=== PATIENT | male | born 1995 | race Caucasian/White ===

== ENCOUNTER 2017-10-19 11:41 | Emergency (ER) | payer SELFPAY, OTHER ==
[2017-10-19] MEDS: TETANUS/DIPHTHERIA TOX ADSORB ADULT 0.5ML SYR/VIAL (90714) IM (14:29)
[2017-10-19] MEDS: RABIES IMMUNE GLOBULIN 1500 INTERNATIONAL UNITS/10 ML VIAL (90375) IM (14:44)
[2017-10-19] MEDS: AUGMENTIN 875 MG TAB PO (14:57)
[2017-10-19] MEDS: RABIES VACCINE HUMAN 2.5 INTERNATIONAL UNITS/ML VIAL (90675) IM (14:58)
== END 2017-10-19 15:28 | disposition home or self-care (01) ==
LOC: M ED 11:41
DX: S81.051A Open bite, right knee, initial encounter (principal); S81.052A Open bite, left knee, initial encounter; S71.151A Open bite, right thigh, initial encounter; S61.551A Open bite of right wrist, initial encounter; W54.0XXA Bitten by dog, initial encounter; Y92.410 Unspecified street and highway as the place of occurrence of the external cause
CPT/HCPCS: 90714

== ENCOUNTER 2018-03-27 21:39 | Emergency (ER) | payer MEDICAID, OTHER, SELFPAY ==
[2018-03-27 22:26] LABS: HEMATOCRIT 44.7 % (42.0-52.0); HEMOGLOBIN 15.4 g/dl (13.5-17.5); MEAN CORPUSCULAR HEMOGLOBIN 31.2 pg (27.0-33.0); MEAN CORPUSCULAR HGB CONC 34.5 g/dl (32.0-36.5); MEAN CORPUSCULAR VOLUME 90.7 fl (80.0-96.0); PLATELET COUNT, AUTOMATED 182 10^3/uL (150-450); RED BLOOD COUNT 4.93 10^6/uL (4.30-6.10); RED CELL DISTRIBUTION WIDTH 11.8 % (11.5-14.5); WHITE BLOOD COUNT 8.5 10^3/uL (4.0-10.0)
[2018-03-27 22:52] LABS: AMPHETAMINES LEVEL URINE NEGATIVE (NEGATIVE); BARBITURATES URINE NEGATIVE (NEGATIVE); BENZODIAZEPINES URINE NEGATIVE (NEGATIVE); CANNABINOIDS URINE NEGATIVE (NEGATIVE); COCAINE METABOLITE URINE NEGATIVE (NEGATIVE); METHADONE URINE NEGATIVE (NEGATIVE); OPIATES URINE NEGATIVE (NEGATIVE); PHENCYCLIDINE URINE NEGATIVE (NEGATIVE)
[2018-03-27 22:57] LABS: ACETAMINOPHEN LEVEL < 2.0 UG/ML (10.0-30.0); ALBUMIN 3.9 GM/DL (3.2-5.2); ALBUMIN/GLOBULIN RATIO 1.39 (1.00-1.93); ALKALINE PHOSPHATASE 73 U/L (45-117); ALT/SGPT 18 U/L (12-78); ANION GAP 8 MEQ/L (8-16); AST/SGOT 15 U/L (7-37); BILIRUBIN,DIRECT 0.1 MG/DL (0.0-0.2); BILIRUBIN,TOTAL 0.3 MG/DL (0.2-1.0); BLOOD UREA NITROGEN 17 MG/DL (7-18); CALCIUM LEVEL 8.7 MG/DL (8.5-10.1); CARBON DIOXIDE LEVEL 27 MEQ/L (21-32); CHLORIDE LEVEL 107 MEQ/L (98-107); CREATININE FOR GFR 0.81 MG/DL (0.70-1.30); ETHYL ALCOHOL (ETHANOL) < 0.003 % (0.000-0.010); GLOMERULAR FILTRATION RATE > 60.0 (>60); GLUCOSE, FASTING 89 MG/DL (70-100); SALICYLATE LEVEL < 1.7 MG/DL (5.0-30.0); SODIUM LEVEL 142 MEQ/L (136-145); TOTAL PROTEIN 6.7 GM/DL (6.4-8.2)
[2018-03-27 23:10] LABS: GOLD SPEC TUBE RECIEVED
== END 2018-03-28 08:17 ==
LOC: M ED 03-28 08:17
DX: R45.851 Suicidal ideations (principal); F33.9 Major depressive disorder, recurrent, unspecified; F43.10 Post-traumatic stress disorder, unspecified; F90.9 Attention-deficit hyperactivity disorder, unspecified type; F17.210 Nicotine dependence, cigarettes, uncomplicated
CPT/HCPCS: 93005

== ENCOUNTER → 2018-07-12 | Outpatient (CLI) | payer MEDICAID, OTHER ==
[~2018-07-12] MED LIST: AUGM875T28 PO
--- NOTE | 2018-07-12 09:29 | REP ---
RIGHT HAND, FOUR VIEWS: HISTORY: Fracture. There is no acute fracture or dislocation. There is an old fracture of the fifth metacarpal. The joint spaces are normal in appearance. IMPRESSION: There is no acute fracture or dislocation. Electronically Signed by Gagan Mcmanus MD 07/12/2018 09:30 A
== END ==
LOC: M LRY 08:55
PROVIDERS: ATTEND Nurse Practitioner Family
DX: Z87.81 Personal history of (healed) traumatic fracture (principal)

== ENCOUNTER → 2018-08-15 | Outpatient (CLI) | payer OTHER ==
[~2018-08-15] MED LIST changes: +NICO21DI31 TD
== END ==
LOC: M OUTALCOH 07:57
PROVIDERS: ATTEND Psychiatry & Neurology Psychiatry
DX: F12.10 Cannabis abuse, uncomplicated (principal)

== ENCOUNTER 2018-08-21 00:02 | Inpatient (IN) | payer OTHER ==
[~2018-08-21] VITALS: Ht 180.3 cm; Wt 66.9 kg
[~2018-08-21 00:02] MED LIST changes: -NICO21DI31 TD
[2018-08-21 01:41] LABS: HEMOGLOBIN 15.1 g/dl (13.5-17.5); MEAN CORPUSCULAR HEMOGLOBIN 31.2 pg (27.0-33.0); MEAN CORPUSCULAR HGB CONC 34.3 g/dl (32.0-36.5); MEAN CORPUSCULAR VOLUME 90.9 fl (80.0-96.0); PLATELET COUNT, AUTOMATED 181 10^3/uL (150-450); RED BLOOD COUNT 4.84 10^6/uL (4.30-6.10); WHITE BLOOD COUNT 10.8 10^3/uL (4.0-10.0)
[2018-08-21 02:24] LABS: ACETAMINOPHEN LEVEL < 2.0 UG/ML (10.0-30.0); ALBUMIN 3.9 GM/DL (3.2-5.2); ALT/SGPT 25 U/L (12-78); BILIRUBIN,DIRECT < 0.1 MG/DL (0.0-0.2); BILIRUBIN,TOTAL 0.3 MG/DL (0.2-1.0); BLOOD UREA NITROGEN 15 MG/DL (7-18); CALCIUM LEVEL 8.4 MG/DL (8.5-10.1); CARBON DIOXIDE LEVEL 26 MEQ/L (21-32); CHLORIDE LEVEL 111 MEQ/L (98-107); ETHYL ALCOHOL (ETHANOL) < 0.003 % (0.000-0.010); GLOMERULAR FILTRATION RATE > 60.0 (>60); GLUCOSE, FASTING 94 MG/DL (70-100); POTASSIUM SERUM 4.1 MEQ/L (3.5-5.1); SALICYLATE LEVEL 2.3 MG/DL (5.0-30.0); SODIUM LEVEL 143 MEQ/L (136-145); TOTAL PROTEIN 6.7 GM/DL (6.4-8.2)
[2018-08-21 03:56] LABS: AMPHETAMINES LEVEL URINE NEGATIVE (NEGATIVE); BARBITURATES URINE NEGATIVE (NEGATIVE); BENZODIAZEPINES URINE NEGATIVE (NEGATIVE); CANNABINOIDS URINE POSITIVE (NEGATIVE); COCAINE METABOLITE URINE NEGATIVE (NEGATIVE); METHADONE URINE NEGATIVE (NEGATIVE); OPIATES URINE NEGATIVE (NEGATIVE); PHENCYCLIDINE URINE NEGATIVE (NEGATIVE)
[2018-08-21] MEDS ORDERED: NICO21DI31 TD (05:03)
[2018-08-21] MEDS ORDERED: MOM 30ML SUSPENSION UDC PO PRN (05:15)
[2018-08-21] MEDS ORDERED: MAALOX 30 ML SUSP *UDC PO PRN (05:15)
[2018-08-21] MEDS ORDERED: ACETAMINOPHEN TAB 650MG DOSE (2X325MG) PO PRN (05:15)
[2018-08-21] MEDS ORDERED: traZODone 50 MG TAB PO PRN (05:15)
[2018-08-21 06:57] VITALS: BP 106/53
--- NOTE | 2018-08-21 09:56 | HPEPDOC ---
[facility] Medical History & Physical Date of Admission Aug 21, 2018 History and Physical PCP: GEOFFREY Meza ATTENDING: Dr. Winston Schreiber HPI: 23yoM admitted to [facility] for unspecified depressive disorder, being medically examined today. No acute medical complaints today. States on Depakote in the past for mood. Denies any fevers, chills, weakness, fatigue, SOFIA, CP, SOB, cough, palpitations, abdominal pain, N/V/D or changes in bowel or bladder habits. PMHx: Anxiety depression PTSD Borderline personality disorder H/O SI/SA, cutting. substance use PSHX: adenoidectomy SOCHX: Resides in: [facility] Marital Status: Kids: 1 Employment: [employer] Tobacco use: 2ppd ETOH: denies Illicit Drugs: Marijuana daily. Last used Meth 3 yr ago. IV Drug Use: Denies Tattoos done unprofessionally: Denies FAMHX: Mother: Alive, PTSD Father: Alive, DM Siblings: 5 Alive, well Children: Alive, well Unexpected deaths due to medical reasons: None. ROS: As noted in HPI, otherwise 11pt ROS of systems reviewed and unremarkable. PE: GEN: 23yoM, appears stated age. Well-nourished, well developed. No acute distress. Alert and oriented x 3. Pleasant, interactive. HEENT: Normocephalic, atraumatic. Pupils are equal, round, and reactive to light. Extraocular movements are intact. No nystagmus appreciated. Sclera are no nicteric. Conjunctiva without injection. Nose midline. Nasal turbinates without bogginess. EACs both patent BL. TMs both visualized and rogers with good cone of light, no bulging or erythema. No facial asymmetry. Moist mucous membranes. Dentition fair. Pharynx pink and moist, no cobblestoning. Neck supple, trachea midline. No lymphadenopathy or thyromegaly appreciated. CHEST: Regular rate and rhythm, +S1, +S2 LUNGS: Clear to auscultation bilaterally. No wheezes, rales, or rhonchi. Breathing appears symmetric and easy. Patient is speaking in full sentences. No accessory muscle use. ABD: Round, soft, non-tender, non-distended. +Bowel sounds throughout. No rebound or guarding. No costovertebral angle tenderness. EXT: Pulses 2+ bilaterally dorsalis pedis and radial. No lower extremity edema appreciated. SKIN: Bock, dry, warm. Capillary refill <2sec. No rashes. NEURO: Alert and oriented x 3. Cranial nerves III-XII are intact. No focal deficits appreciated. EKG: pending A&P: 23yoM admitted to [facility] for unspecified depressive disorder 1. Psych. Plan per Psychiatry. Obtain baseline EKG to assure the safety of psychiatric medications as they can prolong the QT interval. 2. Nicotine dependence. Patch available. 3. Follow up with PCP on discharge. 4. Substance use. Management per psychiatry. 5. Staff member Rudy present throughout exam. Vital Signs Vital Signs Date Time Temp Pulse Resp B/P (MAP) Pulse Ox O2 Delivery O2 Flow Rate FiO2 08/21/18 06:57 98.5 53 14 106/53 (70) 08/21/18 05:46 97 08/21/18 01:32 Room Air Laboratory Data Labs 24H Laboratory Tests 2 08/21/18 01:22: Nucleated Red Blood Cells % (auto) 0.0, Anion Gap 6L, Glomerular Filtration Rate > 60.0, Calcium Level 8.4L, Aspartate Amino Transf (AST/SGOT) 22, Alanine Aminotransferase (ALT/SGPT) 25, Alkaline Phosphatase 70, Total Bilirubin 0.3, Direct Bilirubin < 0.1, Total Protein 6.7, Albumin 3.9, Albumin/Globulin Ratio 1.39, Thyroid Stimulating Hormone (TSH) 1.380, Salicylates Level 2.3L, Urine Amphetamines Screen NEGATIVE, Urine Benzodiazepines Screen NEGATIVE, Urine Opiates Screen NEGATIVE, Urine Methadone Screen NEGATIVE, Acetaminophen Level < 2.0L, Urine Barbiturates Screen NEGATIVE, Urine Phencyclidine Screen NEGATIVE, Urine Cocaine Metabolite Screen NEGATIVE, Urine Cannabinoids Screen POSITIVEH, Ethyl Alcohol Level < 0.003 CBC/BMP Laboratory Tests 08/21/18 01:22 Red Blood Count 4.84, Mean Corpuscular Volume 90.9, Mean Corpuscular Hemoglobin 31.2, Mean Corpuscular Hemoglobin Concent 34.3, Red Cell Distribution Width 12.2 Home Medications Scheduled Nicotine (Nicotine Transdermal Syst) 21 Mg/24 Hr Dis, 21 MG TD DAILY USUALLY CHANGES PATCH IN THE AFTERNOON Allergies Coded Allergies: No Known Allergies (Unverified , 10/19/17) Fransisca Lima Aug 21, 2018 09:56
[2018-08-21] MEDS: NICOTINE 21MG/24HR 1 EA TRANSDERMAL TD SCH (10:26)
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
[2018-08-21 18:22] VITALS: BP 104/58
--- NOTE | 2018-08-22 01:08 | ECGEPIP ---
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
[2018-08-22 06:38] VITALS: BP 120/58
[2018-08-22] MEDS: NICOTINE 21MG/24HR 1 EA TRANSDERMAL TD SCH (08:45)
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
== END 2018-08-22 11:15 | disposition home or self-care (01) | DRG 756 ==
LOC: M ED 00:02 → M ED INP 05:14 → M PSY 06:02
PROVIDERS: ADMIT Psychiatry & Neurology Psychiatry; ATTEND Psychiatry & Neurology Psychiatry
DX: F41.9 Anxiety disorder, unspecified (principal); F12.280 Cannabis dependence with cannabis-induced anxiety disorder; F43.10 Post-traumatic stress disorder, unspecified; F60.3 Borderline personality disorder; Z91.5 Personal history of self-harm

== ENCOUNTER 2018-08-28 10:57 | Outpatient (RCR) | payer OTHER ==
[~2018-08-28 10:57] MED LIST changes: +NICO21DI31 TD
== END 2018-09-02 ==
LOC: M OUTALCOH 10:57
PROVIDERS: ATTEND Psychiatry & Neurology Psychiatry
DX: F12.10 Cannabis abuse, uncomplicated (principal)

== ENCOUNTER → 2018-11-19 | Outpatient (REF) | payer OTHER | LOC: M SFHCLERA 09:36 | PROVIDERS: ATTEND Nurse Practitioner Family | DX: R50.9 Fever, unspecified (principal) ==

== ENCOUNTER 2019-01-16 19:40 | Emergency (ER) | payer OTHER ==
[~2019-01-16] VITALS: Ht 180.3 cm; Wt 68.2 kg
[2019-01-16] MEDS ORDERED: SILV40CR TOP (19:48)
[2019-01-16] MEDS ORDERED: SILVER SULFADIAZINE 1% CR 50 GM JAR TOP ONE (23:15)
[2019-01-16 23:19] VITALS: BP 119/83
== END 2019-01-16 23:22 | disposition home or self-care (01) ==
LOC: M ED 19:40
DX: T23.201A Burn of second degree of right hand, unspecified site, initial encounter (principal); T23.131A Burn of first degree of multiple right fingers (nail), not including thumb, initial encounter; X10.2XXA Contact with fats and cooking oils, initial encounter; Y92.511 Restaurant or cafe as the place of occurrence of the external cause; Y99.0 Civilian activity done for income or pay; Y93.G1 Activity, food preparation and clean up; F60.3 Borderline personality disorder; F43.10 Post-traumatic stress disorder, unspecified; F41.9 Anxiety disorder, unspecified; F17.200 Nicotine dependence, unspecified, uncomplicated